=== PATIENT | male | born 1995 | race African-American/Black ===

== ENCOUNTER 2019-04-19 07:28 | Emergency (ER) | payer MEDICAID ==
[~2019-04-19] VITALS: Ht 175.3 cm; Wt 78.0 kg
[2019-04-19 08:57] VITALS: BP 110/60
== END 2019-04-19 08:59 | disposition home or self-care (01) ==
LOC: ER 07:28
DX: R05 Cough (principal); F17.210 Nicotine dependence, cigarettes, uncomplicated; Z71.6 Tobacco abuse counseling
CPT/HCPCS: 71045; 99283; 99406